=== PATIENT | male | born 1965 | race Caucasian/White ===

== ENCOUNTER → 2018-03-31 | Outpatient (CLI) | payer OTHER ==
[~2018-03-31] MED LIST: ACTOS30 MG PO; CRESTOR10 MG PO; Flexeril PO; Glucophage PO; LYRICA75 MG PO; METFORMIN HCL1000 MG PO; NORCO 5/3251 TABLET PO; OMEPRAZOLE40 M1 PO; OXYCODONE-ACET1 EACH PO; PERCOCET 5/31 TABLET PO; POLYTRIM EYE DR10 ML RIGHT EYE; Percocet 5/325,Endoc PO; ZANTAC150 MG PO
== END | disposition home or self-care (01) ==
LOC: CDC 12:03
DX: Z01.810 Encounter for preprocedural cardiovascular examination (principal); M54.16 Radiculopathy, lumbar region; R94.31 Abnormal electrocardiogram [ECG] [EKG]
CPT/HCPCS: 93000

== ENCOUNTER 2018-04-02 22:31 | Inpatient (IN) | payer OTHER ==
[~2018-04-02] VITALS: Ht 172.7 cm; Wt 113.5 kg
[2018-04-03 06:57] VITALS: BP 155/88
[2018-04-03 19:55] VITALS: BP 99/51
[2018-04-03 23:30] VITALS: BP 101/52
[2018-04-04 03:31] VITALS: BP 98/53
[2018-04-04 07:52] VITALS: BP 90/51
[2018-04-04] MEDS ORDERED: CYCLOBENZAPRINE10 MG PO (08:40)
[2018-04-04 11:57] VITALS: BP 90/49
[2018-04-04 11:58] VITALS: BP 100/57
== END 2018-04-04 14:32 | disposition home or self-care (01) | DRG 460 ==
LOC: 2SOUTH → ENRESERV 22:31 → 3EAST 04-03 06:15 → 2SOUTH 04-03 06:15 → SDC 04-03 09:46 → EDSTATUS 04-03 11:17 → 2SOUTH 04-03 11:19 → ENRESERV 04-03 13:12 → 3EAST 04-03 14:35
PROVIDERS: Neurological Surgery
DX: M43.16 Spondylolisthesis, lumbar region (principal); M48.061 Spinal stenosis, lumbar region without neurogenic claudication; E11.9 Type 2 diabetes mellitus without complications; K21.9 Gastro-esophageal reflux disease without esophagitis
CPT/HCPCS: 36415; 72100; 76000; 80048; 81003; 82948; 85025; 86850; 86900; 86901; 93000; C1713; J0690; J1170; J1885; J2250; J3010; J3370; J3480; Q0175; S0020